=== PATIENT | female | born 1950 | race Caucasian/White ===

== ENCOUNTER 2019-10-07 04:21 | Emergency (ER) | payer MEDICARE, OTHER, SELFPAY ==
--- NOTE | 2019-10-07 04:44 | DI.RAD.S_ITS ---
PROCEDURE: XR CHEST 1V INDICATIONS: chest pain TECHNIQUE: One view of the chest was acquired. COMPARISON: None. FINDINGS: Surgical changes and devices: None. Lungs and pleura: Lungs are clear. No pleural effusions or pneumothorax. Mediastinum: Mediastinal contours appear normal. Heart size is normal. Bones and chest wall: No suspicious bony lesions. Overlying soft tissues appear unremarkable. IMPRESSION: Normal for age, source of current chest pain symptoms is not seen. Dictated by: Vladimir Hurt M.D. on 10/07/2019 at 8:37 Approved by: Vladimir Hurt M.D. on 10/07/2019 at 8:38
[2019-10-07 04:52] VITALS: BP 189/93; PULSE 64; RESP 18; TEMP 36.7; O2SAT 100; BMI 30.2
--- NOTE | 2019-10-07 04:53 | ED_ITS ---
HPI - Chest Pain General Chief Complaint: Arrhythmia/Palpitations Stated Complaint: difficulty breathing, bp high palpitations Time Seen by Provider: 10/07/19 04:43 Source: patient Mode of arrival: Ambulatory Limitations: no limitations History of Present Illness HPI narrative: Tonight the last 3 nights the patient been waking up about 4:00 a.m. with palpations and mild dyspnea. She is still anxious when she arrives, although the palpitations have resolved. Very similar symptoms have happened the previous 3 nights, symptoms resolve ladder coming to the ER for evaluation. Current symptoms started when she was in [place], [place], at altitude. She had another event in [place]. She was walking developed very sudden shortness of breath. The dyspnea resolves with rest. These episodes of having previously. She noted hypertension after awakening. She takes metoprolol on a as needed basis. I do not clearly understand the rash now but which she was prescribed this medication as needed. She does have tremor. She is not diabetic, she does not have high blood being. She is anxious upon arrival, but she does not have a history of anxiety that is medically treated. She is not a smoker. There is no significant family history of early cardiac disease. She denies recent illness. She has no leg pain. She does cough. She has no hemoptysis. Related Data Allergies Allergy/AdvReac Type Severity Reaction Status Date / Time amoxicillin Allergy Verified 10/07/19 04:56 acetaminophen [From Vicodin] AdvReac Verified 10/07/19 04:56 hydrocodone [From Vicodin] AdvReac Verified 10/07/19 04:56 Review of Systems Review of Systems ROS Unobtainable: All systems reviewed & are unremarkable except as noted in HPI and below Constitutional Constitutional: Reports difficulty sleeping, Denies fever(s), Denies headache(s) and Denies malaise Eyes Eyes: Denies change in vision ENT Ears, Nose, Mouth, and Throat: Denies vertigo, Denies dizziness and Denies headache(s) Cardiovascular Cardiovascular: Denies chest pain, Denies lightheadedness, Reports palpitations, Denies dyspnea, Reports dyspnea on exertion and Denies orthopnea Respiratory Respiratory: Denies cough, Denies dyspnea, Reports dyspnea on exertion and Denies wheezing Gastrointestinal Gastrointestinal: Denies abdominal pain, Denies diarrhea, Denies nausea and Denies vomiting Musculoskeletal Musculoskeletal: Denies back pain, Denies muscle weakness, Denies numbness and Denies tingling Integumentary/Breasts Skin/Breast: Denies pruritus, Denies erythema, Denies rash and Denies wounds Neurologic Neurologic: Denies confusion, Denies vertigo, Denies dizziness, Denies headache(s), Denies numbness and Denies tingling Psychiatric Psychiatric: Reports anxiety and Denies confusion Endocrine Endocrine: Reports palpitations Allergic/Immunologic Allergic/Immunologic: Denies wheezing Patient History Medical History (Updated 10/07/19 @ 06:43 by Tony Pandey MD) Palpitation (Acute) Surgical History (Updated 10/07/19 @ 06:45 by Tony Pandey MD) No significant past surgical history (Acute) Social History Smoking Status: Never smoker Exam Initial Vital Signs Initial Vital Signs: Vital Signs Temperature 98.0 F 10/07/19 04:52 Pulse Rate 64 10/07/19 04:52 Respiratory Rate 18 10/07/19 04:52 Blood Pressure 189/93 H 10/07/19 04:52 Pulse Oximetry 100 10/07/19 04:52 Const General: cooperative, well developed and anxious Nutritional Appearance: well nourished [facility] Head: normocephalic and atraumatic Mouth: oral mucosae normal and moist mucous membranes Throat: posterior oropharynx normal, tonsils normal and uvula midline Eyes General: appearance normal, both eyes and all related structures Eyelids: eyelids normal Conjunctivae: conjunctivae normal Sclera: sclerae normal Pupils: PERRL EOM: EOM intact bilaterally Neck Neck: supple, No lymphadenopathy and No JVD Chest Chest: normal palpation of entire chest wall Resp Effort & Inspection: normal respiratory effort and able to speak in complete sentences Auscultation: clear to auscultation bilaterally, no rales, no rhonchi and no wheezes Cardio Rate: regular rate Rhythm: regular rhythm Heart Sounds: S1 normal, S2 normal, no click, no gallops, no murmurs and no rubs Pulses: normal peripheral pulses GI Inspection: non-distended Palpation: soft, no hepatosplenomegaly, No guarding, No pulsatile mass and No tender Auscultation: normal bowel sounds Back/Spine/Pelvis Back: No CVA tenderness Skin Lesions: no lesions Rashes: no rashes Neuro General: alert, oriented x3, gait normal and no focal motor deficits Speech: speech normal Extrem General: full ROM, no pedal edema and no calf tenderness Psych Appearance: well kempt Mental Status: mental status grossly normal Attitude: cooperative Thought Content: normal and suicidality Judgment: judgment good Course Course Course Narrative: Upon arrival, the patient was giving this story of waking repeated in the middle of the night with palpitations and chest discomfort. She had episode of dyspnea several days ago, she was at the [facility], which may have impacted her. She has had some issues prior to the recent trip to [place]. There is no ominous family of cardiac disease. She has calmed down, her ER evaluation is reassuring. I have started on aspirin. I discussed with the patient she arrange follow-up with her doctor. She should talk to her doctor about potentially arranging a nuclear stress test to evaluate for underlying cardiac disease that is not detectable in the ER visit tonight. Orders Ordered: ED Orders 10/07/19 EKG-12 Lead Stat 10/07/19 04:40 Complete Blood Count AUTO DIFF Stat Comprehensive Metabolic Panel Stat D Dimer Stat Lipase Stat Partial Thromboplastin Time Stat Prothrombin Time INR Stat Troponin & CK Cardiac Panel Stat 10/07/19 04:44 XR chest 1V Stat Discontinued Medications Aspirin (Aspirin Chew) 324 mg PO NOW ONE Stop: 10/07/19 05:12 Last Admin: 10/07/19 05:15 Dose: 324 mg Documented by: JAME Vital Signs Vital signs: Vital Signs - 8 hr 10/07/19 04:52 10/07/19 05:40 Temperature 98.0 F Pulse Rate 64 49 L Respiratory Rate 18 15 Blood Pressure 189/93 H Blood Pressure [Right Arm] 161/77 H Pulse Oximetry 100 99 MDM - Chest Pain Lab Data Result diagrams: 10/07/19 04:40 10/07/19 04:40 Labs: Lab Results 10/07/19 10/07/19 10/07/19 Range/Units 04:40 04:40 04:40 WBC 6.3 (4.5-11.0) X10^3/uL RBC 4.32 (4.0-5.2) X10^6/uL Hgb 13.3 (12.0-16.0) g/dL Hct 38.9 (36-46) % MCV 90.2 (80-100) fL MCH 30.7 (26-34) PG MCHC 34.1 (30-36) % RDW 13.9 (11.6-14.8) % Plt Count 215 (150-400) X10^3/uL Neut % (Auto) 31.9 L (50-75) % Lymph % (Auto) 55.7 H (25-40) % Louisa % (Auto) 10.7 (3-14) % Eos % (Auto) 1.2 L (2-4) % Baso % (Auto) 0.5 (0-2) % Neut # (Auto) 2000 (1441-7608) /uL Lymph # (Auto) 3500 (4648-5463) /uL Louisa # (Auto) 700 (0-900) /uL Eos # (Auto) 100 (0-450) /uL Baso # (Auto) 0 (0-100) /uL PT 10.7 (10.1-12.7) SECONDS INR 0.9 (0.9-1.3) APTT 28 (26.4-36.2) SECONDS D-Dimer (<230) ng/mL Sodium 138 (137-145) mmol/L Potassium 3.3 L (3.4-5.1) mmol/L Chloride 101 (98-107) mmol/L Carbon Dioxide 29 (22-32) mmol/L BUN 19 H (7-17) mg/dL Creatinine 0.80 (0.52-1.04) mg/dL Estimated GFR > 60.0 (>60) mL/min BUN/Creatinine Ratio 23.8 H (6-22) Glucose 112 H (80-110) mg/dL Calcium 9.3 (8.4-10.2) mg/dL Total Bilirubin 0.5 (0.2-1.3) mg/dL AST 22 (14-36) IU/L ALT 14 (<35) IU/L Alkaline Phosphatase 67 (38-126) U/L Total Creatine Kinase 41 (30-135) U/L CK-MB (CK-2) TNP CK-MB (CK-2) Rel Index TNP Troponin I < 0.012 (0.01-0.034) ng/mL Total Protein 7.7 (6.3-8.2) g/dL Albumin 4.5 (3.5-5.0) g/dL Globulin 3.2 (1.7-4.1) g/dL Albumin/Globulin Ratio 1.4 (1.0-2.8) Lipase 209 (23-300) U/L 10/07/19 Range/Units 04:40 WBC (4.5-11.0) X10^3/uL RBC (4.0-5.2) X10^6/uL Hgb (12.0-16.0) g/dL Hct (36-46) % MCV (80-100) fL MCH (26-34) PG MCHC (30-36) % RDW (11.6-14.8) % Plt Count (150-400) X10^3/uL Neut % (Auto) (50-75) % Lymph % (Auto) (25-40) % Louisa % (Auto) (3-14) % Eos % (Auto) (2-4) % Baso % (Auto) (0-2) % Neut # (Auto) (0140-7199) /uL Lymph # (Auto) (8474-9119) /uL Louisa # (Auto) (0-900) /uL Eos # (Auto) (0-450) /uL Baso # (Auto) (0-100) /uL PT (10.1-12.7) SECONDS INR (0.9-1.3) APTT (26.4-36.2) SECONDS D-Dimer 210 (<230) ng/mL Sodium (137-145) mmol/L Potassium (3.4-5.1) mmol/L Chloride (98-107) mmol/L Carbon Dioxide (22-32) mmol/L BUN (7-17) mg/dL Creatinine (0.52-1.04) mg/dL Estimated GFR (>60) mL/min BUN/Creatinine Ratio (6-22) Glucose (80-110) mg/dL Calcium (8.4-10.2) mg/dL Total Bilirubin (0.2-1.3) mg/dL AST (14-36) IU/L ALT (<35) IU/L Alkaline Phosphatase (38-126) U/L Total Creatine Kinase (30-135) U/L CK-MB (CK-2) CK-MB (CK-2) Rel Index Troponin I (0.01-0.034) ng/mL Total Protein (6.3-8.2) g/dL Albumin (3.5-5.0) g/dL Globulin (1.7-4.1) g/dL Albumin/Globulin Ratio (1.0-2.8) Lipase (23-300) U/L ECG Data Attestation: I personally reviewed and interpreted this ECG as follows: (Normal sinus rhythm rate 61 beats per minute. Nonspecific ST T wave changes. No ectopy. Normal intervals. ) Discharge Plan Departure Patient Disposition: Home Clinical Impression: Palpitation Instructions: DI for Palpitations Activity Restrictions/Additional Instructions: Continue with your current medications. Baby aspirin 1 tablet daily as we discussed. Return the ER if you develop ongoing chest symptoms, weakness or dizziness, or difficulty breathing. Follow-up with her doctor, you have vague symptoms that are difficult to pin down, a nuclear stress test should be done to evaluate for underlying heart problems that are not detectable here in the ER.
[2019-10-07 04:54] LABS: Add Manual Diff / Slide Review NO; Basophils Absolute Auto 0 /uL (0-100); Basophils Percent Auto 0.5 % (0-2); Eosinophils Absolute Auto 100 /uL (0-450); Eosinophils Percent Auto 1.2 % (2-4); Hematocrit 38.9 % (36-46); Hemoglobin 13.3 g/dL (12.0-16.0); Lymphocytes Absolute Auto 3500 /uL (1100-4500); Lymphocytes Percent Auto 55.7 % (25-40); Mean Corpuscular HGB Conc 34.1 % (30-36); Mean Corpuscular Hemoglobin 30.7 PG (26-34); Mean Corpuscular Volume 90.2 fL (80-100); Monocytes Absolute Auto 700 /uL (0-900); Monocytes Percent Auto 10.7 % (3-14); Neutrophils Absolute Auto 2000 /uL (1500-7000); Neutrophils Percent Auto 31.9 % (50-75); Platelet Count 215 X10^3/uL (150-400); Red Blood Cell Count 4.32 X10^6/uL (4.0-5.2); Red Cell Distribution Width 13.9 % (11.6-14.8); White Blood Cell Count 6.3 X10^3/uL (4.5-11.0)
[2019-10-07 04:57] LABS: INR 0.9 (0.9-1.3); Prothrombin Time 10.7 SECONDS (10.1-12.7)
[2019-10-07 04:59] LABS: PTT Partial Thromboplastin Tim 28 SECONDS (26.4-36.2)
[2019-10-07 05:01] LABS: Alanine Aminotransferase 14 IU/L (<35); Albumin 4.5 g/dL (3.5-5.0); Albumin Globulin Ratio 1.4 (1.0-2.8); Alkaline Phosphatase 67 U/L (38-126); Aspartate Aminotransferase 22 IU/L (14-36); BUN Creatinine Ratio 23.8 (6-22); Bilirubin Total 0.5 mg/dL (0.2-1.3); Blood Urea Nitrogen 19 mg/dL (7-17); Calcium 9.3 mg/dL (8.4-10.2); Carbon Dioxide 29 mmol/L (22-32); Chloride 101 mmol/L (98-107); Creatine Kinase 41 U/L (30-135); Estimated Glomerular Filt Rate > 60.0 mL/min (>60); Globulin 3.2 g/dL (1.7-4.1); Glucose 112 mg/dL (80-110); HEMOLYSIS < 15 (0-50); Lipase 209 U/L (23-300); Potassium 3.3 mmol/L (3.4-5.1); Sodium 138 mmol/L (137-145); Total Protein 7.7 g/dL (6.3-8.2)
[2019-10-07 05:09] LABS: D Dimer 210 ng/mL (<230)
[2019-10-07 05:13] LABS: Troponin I < 0.012 ng/mL (0.01-0.034)
[2019-10-07] MEDS: ASPIRIN 81 MG CHEW TAB 324 MG PO (05:15)
[2019-10-07 05:40] VITALS: BP 161/77; PULSE 49; RESP 15; O2SAT 99
[2019-10-07 06:38] VITALS: BP 157/88; PULSE 55; RESP 18; O2SAT 98
== END 2019-10-07 06:51 | disposition home or self-care (01) ==
PROVIDERS: Emergency Provider Emergency Medicine
DX: R00.2 Palpitations (principal); R06.00 Dyspnea, unspecified; R07.9 Chest pain, unspecified; I10 Essential (primary) hypertension
CPT/HCPCS: 36415; 71045; 80053; 82550; 83690; 84484; 85025; 85379; 85610; 85730; 93005; 99284; 99285